=== PATIENT | female | born 1985 | race American Indian/Alaskan Native ===

== ENCOUNTER 2017-06-07 06:16 | Emergency (ER) | payer MEDICAID, OTHER ==
[2017-06-07 06:17] VITALS: BMI 40.8
[2017-06-07 06:23] VITALS: O2SAT 98
[2017-06-07] MEDS ORDERED: DiphenhydrAMINE 50 mg/ml Inj IV STA (06:47)
--- NOTE | 2017-06-07 06:54 | ED PDOC ---
HPI: Allergic Reaction Time Seen by Provider: 06/07/17 06:35 Chief Complaint (Nursing): Abnormal Skin Integrity Chief Complaint (Provider): Allergic Reaction History Per: Patient History/Exam Limitations: no limitations Onset/Duration Of Symptoms: Hrs (1 hour ago) Current Symptoms Are (Timing): Still Present Additional Complaint(s): 32 y/o female presents to the ED complaining of an allergic reaction, onset of 1 hour ago. Patient reports of waking up this morning with an itchy rash bilaterally to upper extremities and face, along with mild facial swelling. She denies wheezing, dyspnea, or difficulty swallowing. Of note, patient states she had 4 wisdom teeth extracted yesterday and was instructed to take amoxicillin, Motrin, and codeine. She states that she had no trouble with amoxicillin or Motrin, but was never prescribed codeine before. None of these symptoms were present yesterday; all of these symptoms developed this morning. Past Medical History Reviewed: Historical Data, Nursing Documentation, Vital Signs Vital Signs: Last Vital Signs Temp 98.5 F 06/07/17 06:20 Pulse 91 H 06/07/17 06:20 Resp 16 06/07/17 06:20 BP 127/61 06/07/17 06:20 Pulse Ox 98 06/07/17 06:20 - Medical History PMH: No Chronic Diseases - Surgical History Surgical History: (x1) Other surgeries: teeth extraction - Family History Family History: States: Unknown Family Hx, Diabetes (grandmother ) - Living Arrangements Living Arrangements: With Family - Social History Current smoker - smoking cessation education provided: No Ex-Smoker (has not smoked in the last 12 months): No Alcohol: None - Home Medications Home Medications: Ambulatory Orders Medication Instructions Recorded Ibuprofen [Motrin Tab] 800 mg PO Q8H PRN #21 tab 06/16/16 oxyCODONE/Acetaminophen [Percocet 1 tab PO Q6H PRN #26 tab 06/16/16 5/325 mg Tab] - Allergies Allergies/Adverse Reactions: Allergies Allergy/AdvReac Type Severity Reaction Status Date / Time No Known Allergies Allergy Verified 01/15/16 20:08 Review of Systems ROS Statement: Except As Marked, All Systems Reviewed And Found Negative Constitutional: Positive for: Other (facial swelling) ENT: Negative for: Other (difficulty swallowing) Respiratory: Negative for: Shortness of Breath, Wheezing Skin: Positive for: Rash (facial rash and to upper extremities; itchy) Physical Exam - Reviewed Nursing Documentation Reviewed: Yes Vital Signs Reviewed: Yes - Physical Exam Appears: Positive for: Non-toxic, No Acute Distress. Negative for: Uncomfortable Head Exam: Positive for: ATRAUMATIC, NORMOCEPHALIC Skin: Positive for: Rash (macular rash on upper arms bilateral and trunk; erythematous) Eye Exam: Positive for: Normal appearance, EOMI, PERRL ENT: Positive for: Normal ENT Inspection, Other (mild swollen lips, tongue is nomral ) Neck: Positive for: Normal, Painless ROM, Supple Cardiovascular/Chest: Positive for: Regular Rate, Rhythm. Negative for: Murmur Respiratory: Positive for: Normal Breath Sounds. Negative for: Wheezing, Respiratory Distress Gastrointestinal/Abdominal: Positive for: Normal Exam, Soft. Negative for: Tenderness Back: Positive for: Normal Inspection Extremity: Positive for: Normal ROM, Swelling (mild diffusely to face). Negative for: Pedal Edema, Deformity Neurologic/Psych: Positive for: Alert, Oriented. Negative for: Motor/Sensory Deficits - ECG O2 Sat by Pulse Oximetry: 98 (RA) Pulse Ox Interpretation: Normal Disposition - Clinical Impression Clinical Impression: Allergic reaction - Patient ED Disposition Is Patient to be Admitted: Transfer of Care Discussed With Dr.: Jack Ibarra Doctor Will See Patient In The: ED - Disposition Disposition: Transfer of Care Disposition Time: 07:00 Condition: FAIR Forms: [facility] (Nicaraguan) Patient Signed Over To: Jack Ibarra Medical Decision Making Medical Decision Making: Time: --06:47 Impression: --Allergic Reaction with rash and Facial Edema possibly to Codeine or Amoxicillin Plan: --Diphenydramine 50mg IV --Pepcid 20 mg IVP --methylprednisolone 125mg IVP Reassess --07:00 Patient to be signed out to Dr. Ibarra pending observation and reassessment. Scribe Attestation: Documented by Scott Graham acting as a scribe for Mee Viramontes MD
[2017-06-07] MEDS ORDERED: DiphenhydrAMINE 50 mg/ml Inj ONE (06:56)
--- NOTE | 2017-06-07 07:22 | ED PDOC ---
- ECG O2 Sat by Pulse Oximetry: 98 (RA) Pulse Ox Interpretation: Normal - Progress ED Course And Treament: sx improved here, rash resolved advise to stop using amoxicillin will switch to clindamycin advise steroids and close f/u with pmd. pt agree's with plan and leaves ambulatory and in good spirits. Re-evaluation Time: 08:20 Condition: Improved Medical Decision Making Medical Decision Making: Time: 07:00 --Patient signed out to me pending observation and reassessment Disposition Discussed With : Counseled Patient/Family Regarding: Studies Performed, Diagnosis, Need For Followup - Clinical Impression Clinical Impression: Allergic reaction - POA Present On Arrival: None - Disposition Referrals: [facility] [Outside] (2 to 3 days) Disposition: Routine/Home Disposition Time: 08:20 Condition: GOOD Prescriptions: Clindamycin [Cleocin] 300 mg PO QID 7 Days cap DiphenhydrAMINE [Benadryl] 25 mg PO QID PRN #30 cap PRN Reason: Allergy Symptoms Prednisone [Deltasone] 40 mg PO DAILY 3 Days tablet Instructions: Urticaria (ED) Forms: [facility] (Czech)
[2017-06-07 09:28] VITALS: BP 118/78; PULSE 88; RESP 18; TEMP 98
== END 2017-06-07 09:28 | disposition home or self-care (01) ==
LOC: H.ER 06:16
DX: T78.40XA Allergy, unspecified, initial encounter (principal)
CPT/HCPCS: 96374; 96375; 99281; J1200; J2930

== ENCOUNTER 2017-08-15 00:49 | Emergency (ER) | payer MEDICAID ==
[2017-08-15 00:49] VITALS: BMI 40.8
[2017-08-15 01:13] VITALS: TEMP 98.9
--- NOTE | 2017-08-15 01:41 | ED PDOC ---
Lower Extremity Pain/Injury Time Seen by Provider: 08/15/17 01:03 Chief Complaint (Nursing): Lower Extremity Problem/Injury Chief Complaint (Provider): right foot 4th toe injury History Per: Patient History/Exam Limitations: no limitations Onset/Duration Of Symptoms: Mins Current Symptoms Are (Timing): Still Present Additional Complaint(s): 32 y/o female brought in by EMS for evaluation of right foot 4th toe injury sustained prior to arrival. Patient states she banged toe in to bottom of couch. Denies numbness/weakness right lower extremity, limitation of movement. No medication taken for relief thus far. Past Medical History Reviewed: Historical Data, Nursing Documentation, Vital Signs Vital Signs: Last Vital Signs Temp 98.9 F 08/15/17 00:58 Pulse 92 H 08/15/17 00:58 Resp 17 08/15/17 00:58 BP 143/82 08/15/17 00:58 Pulse Ox 98 08/15/17 00:58 - Medical History PMH: No Chronic Diseases - Surgical History Surgical History: (x1) - Family History Family History: States: Unknown Family Hx, Diabetes (grandmother ) - Home Medications Home Medications: Ambulatory Orders Medication Instructions Recorded Ibuprofen [Motrin Tab] 800 mg PO Q8H PRN #21 tab 06/16/16 oxyCODONE/Acetaminophen [Percocet 1 tab PO Q6H PRN #26 tab 06/16/16 5/325 mg Tab] Clindamycin [Cleocin] 300 mg PO QID 7 Days cap 06/07/17 DiphenhydrAMINE [Benadryl] 25 mg PO QID PRN #30 cap 06/07/17 Prednisone [Deltasone] 40 mg PO DAILY 3 Days tablet 06/07/17 Ibuprofen [Motrin Tab] 1 tab PO Q6 PRN #20 tab 08/15/17 - Allergies Allergies/Adverse Reactions: Allergies Allergy/AdvReac Type Severity Reaction Status Date / Time amoxicillin Allergy Mild RASH Verified 08/15/17 01:13 Review of Systems ROS Statement: Except As Marked, All Systems Reviewed And Found Negative Musculoskeletal: Positive for: Foot Pain (right foot 4th digit) Physical Exam - Reviewed Nursing Documentation Reviewed: Yes Vital Signs Reviewed: Yes - Physical Exam Appears: Positive for: Well, Non-toxic, No Acute Distress Skin: Positive for: Normal Color Pulses-Dorsalis Pedis (L): 2+ Pulses-Dorsalis Pedis (R): 2+ Pulses-Post. Tibialis (L): 2+ Pulses-Post. Tibialis (R): 2+ Back: Positive for: Normal Inspection Extremity: Positive for: Tenderness (right foot 4th digit with + swelling; no deformity, ecchymosis, nail injury noted. Distal NV, motor intact) Neurologic/Psych: Positive for: Alert, Oriented. Negative for: Motor/Sensory Deficits - ECG O2 Sat by Pulse Oximetry: 98 - Other Rad xray right foot 4th toe X-Ray: Viewed By Vt X-Ray Interpretation: no acute findings - Progress ED Course And Treament: xray, ibuprofen Patient educated on findings, placed in surgical shoe for comfort. Rx ibuprofen provided. Advised RICE. Follow up Podiatry for persistent symptoms. Return precautions given. Disposition - Clinical Impression Clinical Impression: Toe contusion - Patient ED Disposition Is Patient to be Admitted: No Counseled Patient/Family Regarding: Studies Performed, Diagnosis, Need For Followup, Rx Given - Disposition Referrals: Podiatry Clinic [Outside] Disposition: Routine/Home Disposition Time: 03:47 Condition: IMPROVED Prescriptions: Ibuprofen [Motrin Tab] 1 tab PO Q6 PRN #20 tab PRN Reason: Pain, Moderate (4-7) Instructions: Toe Injury Forms: [facility] (Italian)
[2017-08-15 04:10] VITALS: BP 120/67; PULSE 81; RESP 18; O2SAT 99
--- NOTE | 2017-08-15 08:44 | RAD ---
PROCEDURE: HISTORY: injury, pain COMPARISON: None TECHNIQUE: Three views FINDINGS: No fracture or dislocation. There is soft tissue swelling of the 4th and 6th and 5th toe 5th toe with scissors over the 4th IMPRESSION: No fracture or dislocation. Soft tissue swelling - primarily 4th digit.
== END 2017-08-15 04:09 | disposition home or self-care (01) ==
LOC: H.ER 00:49
DX: S90.121A Contusion of right lesser toe(s) without damage to nail, initial encounter (principal); W22.8XXA Striking against or struck by other objects, initial encounter; Y92.89 Other specified places as the place of occurrence of the external cause

== ENCOUNTER 2018-07-01 11:18 | Emergency (ER) | payer MEDICAID ==
[2018-07-01 11:18] VITALS: BMI 40.8
[2018-07-01] MEDS ORDERED: Naproxen 500 MG TAB PO STA (12:20)
--- NOTE | 2018-07-01 12:30 | ED PDOC ---
HPI: Skin/Bite Injury Time Seen by Provider: 07/01/18 12:09 Chief Complaint (Nursing): Abnormal Skin Integrity Chief Complaint (Provider): Skin Irritation History Per: Patient History/Exam Limitations: no limitations Onset/Duration Of Symptoms: Days (x2) Current Symptoms Are (Timing): Still Present Quality Of Symptoms: Painful Additional Complaint(s): Patient is a 33 year old female who presents for evaluation of skin irritation to her forehead (left side) since waking up yesterday. Patient reports localized pain, redness, and inflammation. Patient took no medications prior to arrival. Patient expresses concern for a possible spider bite. Patient denies any trauma to the area, fever/chills, drainage, headache, dizziness, visual changes, recent travel, neck pain/stiffness. PMD: Santino LMP: Now Past Medical History Reviewed: Historical Data, Nursing Documentation, Vital Signs Vital Signs: Last Vital Signs Temp 97.6 F 07/01/18 11:20 Pulse 109 H 07/01/18 11:20 Resp 18 07/01/18 11:20 BP 120/77 07/01/18 11:20 Pulse Ox 99 07/01/18 11:20 - Medical History PMH: Diabetes (Pre-DM (on Metformin)) - Surgical History Surgical History: (x1) - Family History Family History: States: Diabetes (grandmother ) - Home Medications Home Medications: Ambulatory Orders Medication Instructions Recorded RX: Ibuprofen [Motrin Tab] 800 mg PO Q8H PRN #21 tab 06/16/16 RX: oxyCODONE/Acetaminophen 1 tab PO Q6H PRN #26 tab 06/16/16 [Percocet 5/325 mg Tab] DiphenhydrAMINE [Benadryl] 25 mg PO QID PRN #30 cap 06/07/17 RX: Clindamycin [Cleocin] 300 mg PO QID 7 Days cap 06/07/17 RX: Prednisone [Deltasone] 40 mg PO DAILY 3 Days tablet 06/07/17 RX: Ibuprofen [Motrin Tab] 1 tab PO Q6 PRN #20 tab 08/15/17 RX: Acetaminophen [Tylenol 8 Hour] 650 mg PO Q8 PRN #21 tablet.er 07/01/18 RX: Clindamycin [Cleocin] 1 cap PO TID #30 cap 07/01/18 RX: Naproxen 500 mg PO BID PRN #20 tablet 07/01/18 - Allergies Allergies/Adverse Reactions: Allergies Allergy/AdvReac Type Severity Reaction Status Date / Time amoxicillin Allergy Mild RASH Verified 08/15/17 01:13 Review of Systems ROS Statement: Except As Marked, All Systems Reviewed And Found Negative Skin: Positive for: Other (irritation to left side of forehead) Physical Exam - Reviewed Nursing Documentation Reviewed: Yes Vital Signs Reviewed: Yes - Physical Exam Comments: GENERALIZED APPEARANCE: Patient is AAOx3, in no acute distress. Resting com fortably. SKIN: Warm, dry; (-) cyanosis.(+) 2cm x 2cm area of erythema, warmth, and tenderness to the left side of the forehead just inferior to the hairline. (+) central pustule/papule x2 (-) crusting (-) drainage (-) edema (-) fluctuance ENMT: Airway patent: (-) stridor, (-) hoarseness. Mucus membranes moist. NECK: Supple, FROM (-) lymphadenopathy (-) tenderness CHEST AND RESPIRATORY: (-) rales, (-) rhonchi, (-) wheezes; breath sounds equalbilaterally. Respirations even and nonlabored. CARDIAC: (-) irregularity - ECG O2 Sat by Pulse Oximetry: 99 (RA) Pulse Ox Interpretation: Normal Medical Decision Making Medical Decision Makin Initial Impression: cellulitis of forehead Plan: -Clindamycin 300mg PO -Naproxen 500mg PO -Re-evaluation 1330 Repeat HR: 79 On re-evaluation, patient reports improvement of symptoms. On exam, patient remains AAOx3, in no acute distress. Vitals stable. Lab/Diagnostic results d/w the patient in great detail. Diagnosis of cellulitis of forehead d/w the patient. Return parameters discussed. Based on history, exam and diagnostic results, plan will be for outpatient follow up with PMD. Patient instructed to follow-up with pmd / referral provided / the clinic in 1- 2 days without fail. Advised to take medication as prescribed. Return to the emergency room at any time for any new or worsening symptoms. Patient states she fully agrees with and understands discharge instructions. States that she agrees with the plan and disposition. Verbalized and repeated discharge instructions and plan. I have given the patient opportunity to ask any additional questions. Disposition - Clinical Impression Clinical Impression: Cellulitis of forehead - Patient ED Disposition Is Patient to be Admitted: No Counseled Patient/Family Regarding: Studies Performed, Diagnosis, Need For Followup, Rx Given - Disposition Referrals: primary, doctor [Other] Disposition: Routine/Home Disposition Time: 13:30 Condition: STABLE Additional Instructions: The emergency medical care you received today was directed at your acute symptoms. If you were prescribed any medication, please fill it and take as directed. It may take several days for your symptoms to resolve. Return to the Emergency Department if your symptoms worsen, do not improve, or if you have any other problems. Please contact your doctor in 2 days for re-evaluation and follow up / or call one of the physicians/clinics you have been referred to that are listed on the Patient Visit Information form that is included in your discharge packet. Bring any paperwork you were given at discharge with you along with any medications you are taking to your follow up visit. Our treatment cannot replace ongoing medical care by a primary care provider (PCP) outside of the emergency department. Prescriptions: RX: Acetaminophen [Tylenol 8 Hour] 650 mg PO Q8 PRN #21 tablet.er PRN Reason: Pain, Mild (1-3) RX: Clindamycin [Cleocin] 1 cap PO TID #30 cap RX: Naproxen 500 mg PO BID PRN #20 tablet PRN Reason: Pain, Moderate (4-7) Instructions: Cellulitis (Skin Infection), Adult (DC) Forms: [facility] (Irish) Print Language: DANISH - POA Present On Arrival: None
[2018-07-01] MEDS ORDERED: Naproxen 500 MG TAB PO ONE (13:11)
[2018-07-01 14:23] VITALS: BP 118/70; PULSE 79; RESP 17; TEMP 98
[2018-07-02 19:57] VITALS: O2SAT 99
== END 2018-07-01 14:21 | disposition home or self-care (01) ==
LOC: H.ER 11:18
DX: L03.211 Cellulitis of face (principal); E11.9 Type 2 diabetes mellitus without complications

== ENCOUNTER 2018-07-09 22:05 | Emergency (ER) | payer MEDICAID ==
[2018-07-09 22:05] VITALS: BMI 40.8
--- NOTE | 2018-07-09 22:35 | ED PDOC ---
HPI: Chest Pain Time Seen by Provider: 07/09/18 22:19 Chief Complaint (Nursing): Chest Pain Chief Complaint (Provider): Chest pain History Per: Patient History/Exam Limitations: no limitations Onset/Duration Of Symptoms: Hrs (1) Current Symptoms Are (Timing): Still Present Quality: "Pain" Associated Symptoms: denies: Nausea, Dyspnea, Diaphoresis, Syncope Additional History Per: Patient Additional Complaint(s): 33yo female, otherwise well, comes to ER reporting left sided mid-sternal chest pain, present constantly since 9pm. Patient states pain is constant, worse with stretching or bending forward. She did not take any medications for her pain. Patient is a smoker; denies OCP use or recent long travels. PMD: None provided Past Medical History Reviewed: Historical Data, Nursing Documentation, Vital Signs Vital Signs: Last Vital Signs Temp 98.2 F 07/09/18 22:10 Pulse 83 07/09/18 22:10 Resp 18 07/09/18 22:10 BP 145/90 07/09/18 22:10 Pulse Ox 99 07/09/18 22:10 - Medical History PMH: Diabetes (Pre-DM (on Metformin)) - Surgical History Surgical History: (x1) - Family History Family History: States: Diabetes (grandmother ) - Social History Current smoker - smoking cessation education provided: Yes - Home Medications Home Medications: Ambulatory Orders Medication Instructions Recorded Ibuprofen [Motrin Tab] 800 mg PO Q8H PRN #21 tab 06/16/16 oxyCODONE/Acetaminophen [Percocet 1 tab PO Q6H PRN #26 tab 06/16/16 5/325 mg Tab] Clindamycin [Cleocin] 300 mg PO QID 7 Days cap 06/07/17 DiphenhydrAMINE [Benadryl] 25 mg PO QID PRN #30 cap 06/07/17 Prednisone [Deltasone] 40 mg PO DAILY 3 Days tablet 06/07/17 Ibuprofen [Motrin Tab] 1 tab PO Q6 PRN #20 tab 08/15/17 Acetaminophen [Tylenol 8 Hour] 650 mg PO Q8 PRN #21 tablet.er 07/01/18 Clindamycin [Cleocin] 1 cap PO TID #30 cap 07/01/18 Naproxen 500 mg PO BID PRN #20 tablet 07/01/18 - Allergies Allergies/Adverse Reactions: Allergies Allergy/AdvReac Type Severity Reaction Status Date / Time amoxicillin Allergy Mild RASH Verified 07/09/18 22:10 Review of Systems ROS Statement: Except As Marked, All Systems Reviewed And Found Negative Constitutional: Negative for: Fever, Chills Eyes: Negative for: Pain Cardiovascular: Positive for: Chest Pain Respiratory: Negative for: Shortness of Breath Gastrointestinal: Negative for: Nausea, Vomiting Physical Exam - Reviewed Nursing Documentation Reviewed: Yes Vital Signs Reviewed: Yes - Physical Exam Appears: Positive for: Non-toxic, No Acute Distress Head Exam: Positive for: ATRAUMATIC, NORMAL INSPECTION Skin: Positive for: Normal Color, Warm, DRY Eye Exam: Positive for: Normal appearance, EOMI, PERRL Neck: Positive for: Normal, Supple Cardiovascular/Chest: Positive for: Regular Rate, Rhythm. Negative for: Chest Non Tender (+ tenderness to left mid sternal region), Murmur Respiratory: Positive for: Normal Breath Sounds. Negative for: Wheezing Pulses-Radial (L): 2+ Pulses-Radial (R): 2+ Gastrointestinal/Abdominal: Positive for: Normal Exam, Soft Back: Positive for: Normal Inspection Extremity: Positive for: Normal ROM Neurologic/Psych: Positive for: Alert, Oriented. Negative for: Motor/Sensory Deficits - Laboratory Results Result Diagrams: 07/09/18 23:11 07/09/18 23:11 - ECG ECG: Positive for: Interpreted By Me, Viewed By Me ECG Rhythm: Positive for: Normal QRS, Normal ST Segment, Sinus Rhythm. Negative for: ST/T Changes Rate: 89 O2 Sat by Pulse Oximetry: 99 (RA) Pulse Ox Interpretation: Normal Medical Decision Making Medical Decision Makinyo female w/ chest pain; likely musculoskeletal, rule out cardiac etiology Plan: -- Labs -- EKG -- Chest x-ray 0 Patient signed out to Dr. Quintero pending labs, chest x-ray and reassessment. Scribe Attestation: Documented by Shanna Aguilar acting as a scribe for Yue Roblero MD. Provider Attestation: All medical record entries made by the Scribe were at my direction and personally dictated by me. I have reviewed the chart and agree that the record accurately reflects my personal performance of the history, physical exam, medical decision making, and the department course for this patient. I have also personally directed, reviewed, and agree with the discharge instructions and disposition. Disposition - Clinical Impression Clinical Impression: Chest pain - Patient ED Disposition Is Patient to be Admitted: Transfer of Care - Disposition Disposition: Transfer of Care Disposition Time: 23:00 Condition: IMPROVED Additional Instructions: Today your blood work and chest xray showed no abnormalities. Follow up with primary medical doctor as needed. Take Tylenol or Motrin for pain. Return to the emergency department if symptoms worsen or if new symptoms develop such as trouble breathing, worsened pain, fever, or dizziness. Instructions: Chest Pain That Is Not Caused by the Heart (DC), Chest Pain (DC) Forms: [facility] (Niuean) Print Language: GAMBIAN Patient Signed Over To: Allison Quintero
--- NOTE | 2018-07-09 22:50 | ED PDOC ---
- Laboratory Results Result Diagrams: 07/09/18 23:11 07/09/18 23:11 - ECG O2 Sat by Pulse Oximetry: 99 (RA) Pulse Ox Interpretation: Normal Medical Decision Making Medical Decision Making: Receiving sign out: Patient signed out to me by Dr. Roblero at 2250 pending labs, CXR. 00:27 Labs are normal. CXR is unremarkable. Patient is to follow up with her PMD. Tylenol or Motrin for pain relief. Discussed return parameters with patient. Scribe Attestation: Documented by Shanna Aguilar acting as a scribe for Ruslan Quintero MD. Provider Attestation: All medical record entries made by the Scribe were at my direction and personally dictated by me. I have reviewed the chart and agree that the record accurately reflects my personal performance of the history, physical exam, medical decision making, and the department course for this patient. I have also personally directed, reviewed, and agree with the discharge instructions and disposition. Disposition - Disposition Condition: STABLE Forms: [facility] (Chilean)
[2018-07-09 23:14] LABS: BASO # 0.1 K/uL (0.0-0.2); BASO % 0.9 % (0.0-2.0); EOS # 0.2 K/uL (0.0-0.7); EOS % 2.4 % (0.0-4.0); HEMOGLOBIN 11.7 g/dL (12.0-16.0); LYMPH # 2.3 K/uL (1.0-4.3); LYMPH % 31.3 % (20.0-40.0); MEAN CELL VOLUME 80.1 fl (81.0-99.0); MEAN CORPUSCULAR HEMOGLOBIN 25.9 pg (27.0-31.0); MEAN CORPUSCULAR HGB CONC 32.3 g/dL (33.0-37.0); MEAN PLATELET VOLUME 8.6 fl (7.2-11.7); MONO # 0.5 K/uL (0.0-0.8); MONO % 7.1 % (0.0-10.0); NEUT # 4.3 K/uL (1.8-7.0); NEUT % 58.3 % (50.0-75.0); NRBC % 0.1 % (0.0-0.0); RBC 4.54 Mil/uL (3.80-5.20); RED CELL DISTRIBUTION WIDTH 14.9 % (11.5-14.5); WHITE BLOOD COUNT 7.4 K/uL (4.8-10.8)
[2018-07-09 23:21] LABS: INR 0.9; PROTHROMBIN TIME 10.5 Seconds (9.8-13.1)
[2018-07-09 23:23] LABS: ALB/GLOB RATIO 1.1 (1.0-2.1); ALBUMIN 3.9 g/dL (3.5-5.0); BLOOD UREA NITROGEN 11 mg/dl (7-17); CALCIUM 8.8 mg/dL (8.4-10.2); GFR NON-AFRICAN AMERICAN > 60
[2018-07-09 23:24] LABS: PARTIAL THROMBOPLASTIN TIME 29.5 Seconds (25.6-37.1)
[2018-07-09 23:35] LABS: ALT/SGPT 22 U/L (9-52); AST/SGOT 25 U/L (14-36)
[2018-07-10 01:44] VITALS: BP 116/59; RESP 16; TEMP 98
--- NOTE | 2018-07-10 09:01 | CARD ---
APPROVED REPORT Date of service: 07/09/2018 EKG Measurement Heart [id number] <Conclusion> Normal sinus rhythm Normal ECG
--- NOTE | 2018-07-10 16:49 | RAD ---
Date of service: 07/09/2018 HISTORY: L midsternal CP COMPARISON: No prior. TECHNIQUE: Chest PA and lateral FINDINGS: LUNGS: No active pulmonary disease. PLEURA: No significant pleural effusion identified. No pneumothorax apparent. CARDIOVASCULAR: No aortic atherosclerotic calcification present. Normal cardiac size. No pulmonary vascular congestion. OSSEOUS STRUCTURES: No significant abnormalities. VISUALIZED UPPER ABDOMEN: Normal. OTHER FINDINGS: None. IMPRESSION: No active disease.
[2018-07-10 18:17] VITALS: PULSE 89; O2SAT 99
== END 2018-07-10 01:20 | disposition home or self-care (01) ==
LOC: H.ER 22:05
DX: R07.89 Other chest pain (principal); E11.9 Type 2 diabetes mellitus without complications; F17.200 Nicotine dependence, unspecified, uncomplicated